=== PATIENT | female | born 1990 | race Caucasian/White ===

== ENCOUNTER 2016-10-19 15:49 | Inpatient (IN) ==
[2016-10-19 18:27] LABS: Basophils % 0.4 %; Eosinophils # 0.1 K/mcL (0.0-0.6); Eosinophils % 1.1 %; Hematocrit 38.5 % (35.3-44.9); Immature Granulocytes % 0.3 % (0-4); Lymphocytes # 2.8 K/mcL (0.6-4.6); Lymphocytes % 30.7 %; Mean Corpuscular HGB Conc 33.8 g/dL (31.6-35.5); Mean Corpuscular Hemoglobin 31.5 pg (28.0-33.3); Mean Corpuscular Volume 93.2 fL (83.0-100.0); Mean Platelet Volume 10.6 fL (9.4-12.4); Monocytes # 0.8 K/mcL (0.0-1.3); Monocytes % 9.2 %; Neutrophils # 5.2 K/mcL (1.6-8.9); Platelet Count 271 K/mcL (140-400); Red Blood Count 4.13 M/mcL (3.82-4.97); Red Cell Distribution Width 12.4 % (11.5-14.5); Segmented Neutrophils % 58.3 %
[2016-10-19 18:49] LABS: Alanine Aminotransferase 10 Units/L (0-55); Albumin/Globulin Ratio 1.1 (1.1-2.2); Alkaline Phosphatase 73 Units/L (38-126); Amylase 73 Units/L (25-125); Aspartate Amino Transferase 16 Units/L (5-34); BUN/Creatinine Ratio 18 (6-26); Bilirubin,Direct 0.2 mg/dL (0.0-0.5); Bilirubin,Indirect 0.3 mg/dL (0.0-1.2); Bilirubin,Total 0.5 mg/dL (0.2-1.2); Blood Urea Nitrogen 17 mg/dL (7-20); Calcium 9.6 mg/dL (8.6-10.8); Carbon Dioxide 24 mEq/L (19-29); Chloride 105 mEq/L (98-109); Globulin 3.5 g/dL (2.4-3.5); Glucose 135 mg/dL (70-99); Lipase 49 Units/L (8-78); Osmolality,Calculated 292 (280-300); Potassium 3.7 mEq/L (3.5-4.5); Sodium 139 mEq/L (136-145); Total Protein 7.5 g/dL (6.0-8.3); eGFR For African Americans > 60 (> 60); eGFR For Non-African Americans > 60 (> 60)
[2016-10-19] MEDS ORDERED: Ondansetron 4 MG/2 ML VIAL IVP ONE (20:52)
[2016-10-19] MEDS ORDERED: *HR* HYDROmorphone (PF) 1 MG/ML SYRINGE IVP ONE (20:52)
[2016-10-19] MEDS ORDERED: 0.9 % Sodium Chloride 1,000 ML IVC ONE (20:52)
--- NOTE | 2016-10-19 20:57 | Emergency Department Note ---
Disposition Clinical Impression: Pyelonephritis Intractable vomiting with nausea Qualifiers: Vomiting type: unspecified Qualified Code(s): R11.2 - Nausea with vomiting, unspecified Disposition: Admitted As Inpatient Referrals: Edwin Caldera DO [Primary Care Provider] - Forms: Work/School Release, ED Satisfaction Letter Time of Disposition: 22:19 Abdominal Pain HPI - General Chief Complaint: ED Abdominal Pain Stated Complaint: FLANK PAIN Time Seen by Provider: 10/19/16 17:06 Source: patient Mode of arrival: wheelchair Limitations: no limitations Nursing Notes Reviewed: Yes Vital Signs Reviewed: Yes - History of Present Illness HPI Narrative: History of present illness: 26-year-old female with ear worse down low syndrome presents with right flank pain for 1-2 weeks. Was treated outpatient on ciprofloxacin for presumed UTI. However despite a 7 day course of ciprofloxacin patient had persistent flank pain on the right hematuria and fevers up to 101. She has had interstitial cystitis since 2009. She also has a history of migraine headaches. Patient is currently on having her menses. Patient said that she really has not been able to keep anything down for the past 24-40 hours. Denies any photophobia or headache. Denies any chest pain or shortness of breath. Denies any skin rashes. Patient states that her last kidney stone was approximately one year ago. And it was taken care of by a neurologist at [facility]. Pain Scale: 7 - Related Data Home Medications Medication Instructions Recorded Confirmed Fludrocortisone Acetate [Florinef] 0.05 mg PO BID 03/15/16 03/16/16 Fluvoxamine [Luvox] 100 mg PO HS 03/15/16 03/16/16 Potassium Chloride [K-Tab ER] 10 meq PO DAILY 03/15/16 03/16/16 Quetiapine Fumarate [Seroquel] 200 mg PO HS 03/15/16 03/16/16 Diazepam [Valium] 5 mg PO DAILY PRN 03/16/16 03/16/16 Topiramate [Topamax] 150 mg PO HS 03/16/16 03/16/16 Previous Rx's Medication Instructions Recorded Levofloxacin [Levaquin] 500 mg PO DAILY #5 tablet 03/17/16 Oxycodone HCl/Acetaminophen 1 each PO Q4H PRN #20 tablet 03/17/16 [Percocet 5-325 mg Tablet] Diazepam [Valium] 5 mg PO BID PRN #10 tablet 03/20/16 Doxycycline 100 mg PO BID #14 capsule 03/27/16 Fluconazole [Diflucan] 150 mg PO DAILY #1 tab 03/27/16 Fluvoxamine [Luvox] 100 mg PO HS #30 tablet 03/27/16 Amoxicillin 875 mg PO BID #20 tablet 05/11/16 PredniSONE [Deltasone] 20 mg PO DAILY #11 tablet 05/11/16 Fluvoxamine [Luvox] 100 mg PO HS #30 tablet 05/18/16 HYDROcodone/Acet 5/325 mg [[place] 1 tab PO Q6HR PRN #10 tablet 07/03/16 5-325 mg] HYDROcodone/Acet 5/325 mg [[place] 1 tab PO Q6H PRN #4 tab 07/16/16 5-325 mg] Amoxicillin Susp [Amoxil] 11 ml PO BID #154 bottle 08/03/16 Allergies Allergy/AdvReac Type Severity Reaction Status Date / Time cefdinir [From Omnicef] Allergy Rash Verified 09/04/16 10:16 Nickel Allergy Rash Verified 09/04/16 10:16 red dye Allergy Rash Verified 09/04/16 10:16 sulfamethoxazole Allergy Rash Verified 09/04/16 10:16 [From Bactrim] trimethoprim [From Bactrim] Allergy Rash Verified 09/04/16 10:16 metronidazole [From Flagyl] AdvReac Nausea Verified 09/04/16 10:16 phenazopyridine AdvReac Nausea Verified 09/04/16 10:16 [From Pyridium] All systems ED: reviewed and negative except as stated. 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: non-contributory Psychiatric history: Reports: anxiety, depression, other - Social History Smoking status: Never smoker Alcohol use: Reports: occasionally Drug use: Reports: marijuana Physical Exam - General Limitations: no limitations General appearance: alert, in distress - Head Head exam: atraumatic, normocephalic - Eye Eye exam: Present: normal appearance, PERRL, EOMI - ENT ENT exam: normal exam, normal oropharynx, mucous membranes dry - Neck Neck exam: Present: normal inspection, full ROM - Chest Chest inspection: Present: normal inspection, symmetric chest wall rise - Respiratory Respiratory exam: Present: normal lung sounds bilaterally - Cardiovascular Cardiovascular exam: Present: regular rate, normal rhythm - Abdominal Exam Abdominal exam: Present: soft, Non-Tender - Extremities Exam Extremities exam: Present: normal inspection, full ROM - Expanded Lower Extremity Exam Neurovascular/Tendon exam: Present: normal capillary refill Gait: not tested/not observed - Back Exam Back exam: Present: normal inspection, full ROM, CVA tenderness (R). Absent: CVA tenderness (L) - Neurological Exam Neurological exam: Present: alert, oriented X3, CN II-XII intact - Psychiatric Psychiatric exam: Present: normal affect, normal mood - Skin Skin exam: Present: warm, dry, intact Course - Reevaluation(s) Reevaluation #1: Patient with history of kidney stones treatment for outpatient UTI but persistent pain and fevers. He worked up for possible pyelonephritis and rule out concomitant nephrolithiasis. Patient is getting IV fluid bolus, IV antibiotics, take care of her brother IV analgesics. Screening labs and abdominopelvic CT. Patient stable. Time: 20:59 Reevaluation #2: Patient's ED workup is complete. Abdominal pelvic CT is essentially negative aside from an intraparenchymal kidney stone on the left. Patient's CBC within normal limits chemistry panel shows a slightly low potassium. Patient's urinalysis suspicious for infection. Due to the patient's persistence of symptoms and intractable nausea and vomiting she will be admitted for suspected clinical pyelonephritis. I ordered a gram of IV Rocephin. Hospitalist was paged. Decision to admit placed. Patient stable Time: 22:18 Vital Signs Respiratory Rate 0 10/19/16 17:06 Blood Pressure 0/0 10/19/16 17:06 Temperature 98 F 10/19/16 17:18 Pulse Rate 95 10/19/16 17:18 Respiratory Rate 22 10/19/16 17:18 Blood Pressure 111/80 10/19/16 17:18 O2 Sat by Pulse Oximetry 100 10/19/16 22:15 Oxygen Delivery Oxygen Delivery Room Air Abdominal Pain - Lab Data Result diagrams: 10/19/16 18:15 10/19/16 18:15 Lab Results 10/19/16 10/19/16 10/19/16 Range/Units 18:15 18:15 20:45 WBC 9.0 (4.3-11.1) K/mcL RBC 4.13 (3.82-4.97) M/mcL Hgb 13.0 (11.5-15.4) g/dL Hct 38.5 (35.3-44.9) % MCV 93.2 (83.0-100.0) fL MCH 31.5 (28.0-33.3) pg MCHC 33.8 (31.6-35.5) g/dL RDW 12.4 (11.5-14.5) % Plt Count 271 (140-400) K/mcL MPV 10.6 (9.4-12.4) fL Immature Gran % 0.3 (0-4) % Seg Neutrophils % 58.3 % Lymphocytes % 30.7 % Monocytes % 9.2 % Eosinophils % 1.1 % Basophils % 0.4 % Neutrophils # 5.2 (1.6-8.9) K/mcL Lymphocytes # 2.8 (0.6-4.6) K/mcL Monocytes # 0.8 (0.0-1.3) K/mcL Eosinophils # 0.1 (0.0-0.6) K/mcL Basophils # 0.0 (0.0-0.2) K/mcL Sodium 139 (136-145) mEq/L Potassium 3.7 (3.5-4.5) mEq/L Chloride 105 (98-109) mEq/L Carbon Dioxide 24 (19-29) mEq/L BUN 17 (7-20) mg/dL Creatinine 0.97 (0.57-1.11) mg/dL Est GFR ( Amer) > 60 (> 60) Est GFR (Non-Af Amer) > 60 (> 60) BUN/Creatinine Ratio 18 (6-26) Glucose 135 H (70-99) mg/dL Calculated Osmolality 292 (280-300) Lactic Acid (0.5-2.2) mmol/L Calcium 9.6 (8.6-10.8) mg/dL Total Bilirubin 0.5 (0.2-1.2) mg/dL Direct Bilirubin 0.2 (0.0-0.5) mg/dL Indirect Bilirubin 0.3 (0.0-1.2) mg/dL AST 16 (5-34) Units/L ALT 10 (0-55) Units/L Alkaline Phosphatase 73 (38-126) Units/L Serum Total Protein 7.5 (6.0-8.3) g/dL Albumin 4.0 (3.5-5.0) g/dL Globulin 3.5 (2.4-3.5) g/dL Albumin/Globulin Ratio 1.1 (1.1-2.2) Amylase 73 (25-125) Units/L Lipase 49 (8-78) Units/L Ur Specimen Adequacy Urine Color Red A (Yellow) Urine Clarity Cloudy A (Clear) Urine pH 5.5 (5.0-8.0) pH Units Ur Specific [place] 1.018 (1.010-1.025) Urine Protein 100 H (Neg-Trace) mg/dL Urine Glucose (UA) Normal (Normal) mg/dL Urine Ketones 15 H (Negative) mg/dL Urine Blood Large H (Negative) Urine Nitrite Positive A (Negative) Urine Bilirubin Large H (Negative) Urine Urobilinogen Normal (Normal) mg/dL Ur Leukocyte Esterase Moderate H (Negative) Ur Culture Indicated? YES A (NO) Urine Test (Negative) 10/19/16 10/19/16 Range/Units 20:52 21:27 WBC (4.3-11.1) K/mcL RBC (3.82-4.97) M/mcL Hgb (11.5-15.4) g/dL Hct (35.3-44.9) % MCV (83.0-100.0) fL MCH (28.0-33.3) pg MCHC (31.6-35.5) g/dL RDW (11.5-14.5) % Plt Count (140-400) K/mcL MPV (9.4-12.4) fL Immature Gran % (0-4) % Seg Neutrophils % % Lymphocytes % % Monocytes % % Eosinophils % % Basophils % % Neutrophils # (1.6-8.9) K/mcL Lymphocytes # (0.6-4.6) K/mcL Monocytes # (0.0-1.3) K/mcL Eosinophils # (0.0-0.6) K/mcL Basophils # (0.0-0.2) K/mcL Sodium (136-145) mEq/L Potassium (3.5-4.5) mEq/L Chloride (98-109) mEq/L Carbon Dioxide (19-29) mEq/L BUN (7-20) mg/dL Creatinine (0.57-1.11) mg/dL Est GFR ( Amer) (> 60) Est GFR (Non-Af Amer) (> 60) BUN/Creatinine Ratio (6-26) Glucose (70-99) mg/dL Calculated Osmolality (280-300) Lactic Acid 0.8 (0.5-2.2) mmol/L Calcium (8.6-10.8) mg/dL Total Bilirubin (0.2-1.2) mg/dL Direct Bilirubin (0.0-0.5) mg/dL Indirect Bilirubin (0.0-1.2) mg/dL AST (5-34) Units/L ALT (0-55) Units/L Alkaline Phosphatase (38-126) Units/L Serum Total Protein (6.0-8.3) g/dL Albumin (3.5-5.0) g/dL Globulin (2.4-3.5) g/dL Albumin/Globulin Ratio (1.1-2.2) Amylase (25-125) Units/L Lipase (8-78) Units/L Ur Specimen Adequacy Urine Color (Yellow) Urine Clarity (Clear) Urine pH (5.0-8.0) pH Units Ur Specific [place] (1.010-1.025) Urine Protein (Neg-Trace) mg/dL Urine Glucose (UA) (Normal) mg/dL Urine Ketones (Negative) mg/dL Urine Blood (Negative) Urine Nitrite (Negative) Urine Bilirubin (Negative) Urine Urobilinogen (Normal) mg/dL Ur Leukocyte Esterase (Negative) Ur Culture Indicated? (NO) Urine Test Negative (Negative)
[2016-10-19 21:06] LABS: Bilirubin,Urine Large (Negative); Blood,Urine Large (Negative); Clarity,Urine Cloudy (Clear); Color,Urine Red (Yellow); Glucose,Urine (UA) Normal (Normal); Ketones,Urine 15 mg/dL (Negative); Leukocyte Esterase,Urine Moderate (Negative); Nitrite,Urine Positive (Negative); PH,Urine 5.5 pH Units (5.0-8.0); Protein,Urine 100 mg/dL (Neg-Trace); Specific Gravity,Urine 1.018 (1.010-1.025); Urobilinogen,Urine Normal (Normal)
[2016-10-19] MEDS ORDERED: 0.9 % Sodium Chloride 1,000 ML IVC SCH (22:30)
[2016-10-20] MEDS: *HR* Morphine 2 MG/ML SYRINGE IVP PRN ×3 (04:18→16:19)
[2016-10-20] MEDS ORDERED: Ondansetron 4 MG/2 ML VIAL IVP PRN (04:49)
[2016-10-20] MEDS ORDERED: Naloxone 0.4 MG/ML INJ IVP PRN (04:49)
[2016-10-20] MEDS ORDERED: Acetaminophen 325 MG TABLET PO PRN (04:49)
[2016-10-20] MEDS ORDERED: 0.9 % Sodium Chloride w KCl 20 MEQ/1,000 ML MLS IVC SCH (05:00)
[2016-10-20] MEDS: *HR* Heparin 5,000 UNIT/ML VIAL SQ SCH ×2 (05:29→18:36)
[2016-10-20] MEDS: Topiramate 100 MG TABLET PO SCH ×2 (05:30→21:33)
--- NOTE | 2016-10-20 06:23 | Internal Med History&Physical ---
Date of Encounter: 10/20/16 Time of Encounter: 06:15 Assessment and Plan (1) Pyelonephritis Current visit: Yes Status: Acute 1. Follow urine culture. 2. Continue IV antibiotics. 3. IVF hydration, IV pain control, IV anti-emetics. 4. Patient failed outpatient treatment. 5. Culture blood and monitor fevers. If fevers do not defervesce, consider reimaging the kidneys for possible cisco-nephric abscess. (2) Dehydration Current visit: Yes Status: Acute 1. IV fluid hydration. 2. Oral hydration as able. 3. Monitor I/O and daily weight; wean IVF as PO intake improves. (3) DVT prophylaxis Current visit: Yes Status: Acute 1. Heparin SQ. Internal Medicine - H&P: HPI Chief complaint: flank pain Admitted From: Emergency Dept Plans for Post Hospital Care: Home History of present illness: Ms. Humphreys is a 26 year old female who presents to the ER with flank pain, dysuria, hematuria, nausea, and vomiting and associated fevers. She was treated outpatient for UTI with failed results. She was on antibiotics for about 7-10 days as an outpatient and failed to improve despite the antibiotics. She therefore came to the ER where she was diagnosed with pyelonephritis. She was subsequently admitted to hospitalist service. Upon my assessment of the patient, she appears acutely ill but nontoxic. She is dehydrated, nauseated, and complaining of significant flank pain. She is in obvious distress and dehydration from her pyelonephritis. She has a history of recurrent UTI and cystitis, but she has never been admitted to the hospital for pyelonephritis. She did have kidney stones last summer requiring urologic intervention. She has had no problems with kidney stones since then. Patient also tells me that she has a history of Ehler-Danlos syndrome, POTS syndrome, and some anxiety. She takes Florinef for her POTS, Topamax for migraine prophylaxis, and Seroquel and Luvox for her anxiety. Unfortunately, her current medication list is not accurate and is not updated. She requested that I prescribe her medications as she takes every night. I did order as she takes them. The rest of her medication list is not accurate needs to be updated. Past Med Surg Social Fam HX - Past Medical History Attestation: Yes The following information was validated with the patient. Source: patient, old records reviewed Medical history: kidney stones, migraine, other (POTS) Psychiatric history: anxiety, depression - Past Surgical History Surgical History: other (tonsillectomy) - Social History Smoking Status: Never smoker Smokeless Tobacco Status: No Alcohol use: occasionally Drug use: none Current living situation: Home - Independent Activity Level: Independent ambulation Recent Out of Country Travel Within the Last 8 Weeks: No - Family History Father Living Status: Still Living Hx Family Cardiac Disorders: No Hx Family Respiratory Disorders: No Hx Family Cancer: No Hx Family GI Disorders: No Hx Family Genitourinary Disorders: No Hx Family Endocrine Disorder: No Hx Family Musculoskeletal Disorders: No Hx Family Neuromuscular Disorders: No Hx Family Neurologic Disorders: No Hx Family HEENT Disorders: No Hx Family Autoimmune Disorders: No Hx Family Reproductive Disorders: No Hx Family Psychosocial Disorders: No Hx Family Medical Disorders: No Mother Living Status: Still Living Hx Family Cardiac Disorders: Yes (HTN) Hx Family Respiratory Disorders: No Hx Family Cancer: Yes (Ovarian precancer) Hx Family GI Disorders: No Hx Family Genitourinary Disorders: Yes (Kidney stones) Hx Family Endocrine Disorder: Yes (Pre-diabetic) Hx Family Musculoskeletal Disorders: No Hx Family Neuromuscular Disorders: No Hx Family Neurologic Disorders: No Hx Family HEENT Disorders: Yes (Deaf in one ear) Hx Family Autoimmune Disorders: No Hx Family Reproductive Disorders: No Hx Family Psychosocial Disorders: No Hx Family Medical Disorders: No Internal Medicine - H&P: Meds Fludrocortisone Acetate [Florinef] 0.05 mg PO BID 03/15/16 [History] Fluvoxamine [Luvox] 100 mg PO HS 03/15/16 [History] Potassium Chloride [K-Tab ER] 10 meq PO DAILY 03/15/16 [History] Quetiapine Fumarate [Seroquel] 200 mg PO HS 03/15/16 [History] Diazepam [Valium] 5 mg PO DAILY PRN 03/16/16 [History] Topiramate [Topamax] 150 mg PO HS 03/16/16 [History] Levofloxacin [Levaquin] 500 mg PO DAILY #5 tablet 03/17/16 [Rx] Oxycodone HCl/Acetaminophen [Percocet 5-325 mg Tablet] 1 each PO Q4H PRN #20 tablet 03/17/16 [Rx] Diazepam [Valium] 5 mg PO BID PRN #10 tablet 03/20/16 [Rx] Doxycycline 100 mg PO BID #14 capsule 03/27/16 [Rx] Fluconazole [Diflucan] 150 mg PO DAILY #1 tab 03/27/16 [Rx] Fluvoxamine [Luvox] 100 mg PO HS #30 tablet 03/27/16 [Rx] Amoxicillin 875 mg PO BID #20 tablet 05/11/16 [Rx] PredniSONE [Deltasone] 20 mg PO DAILY #11 tablet 05/11/16 [Rx] Fluvoxamine [Luvox] 100 mg PO HS #30 tablet 05/18/16 [Rx] HYDROcodone/Acet 5/325 mg [[place] 5-325 mg] 1 tab PO Q6HR PRN #10 tablet [Rx] HYDROcodone/Acet 5/325 mg [[place] 5-325 mg] 1 tab PO Q6H PRN #4 tab 07/16/16 [Rx] Amoxicillin Susp [Amoxil] 11 ml PO BID #154 bottle 08/03/16 [Rx] Allergies cefdinir [From Omnicef] Allergy (Verified 09/04/16 10:16) Rash Nickel Allergy (Verified 09/04/16 10:16) Rash red dye Allergy (Verified 09/04/16 10:16) Rash sulfamethoxazole [From Bactrim] Allergy (Verified 09/04/16 10:16) Rash trimethoprim [From Bactrim] Allergy (Verified 09/04/16 10:16) Rash metronidazole [From Flagyl] Adverse Reaction (Verified 09/04/16 10:16) Nausea phenazopyridine [From Pyridium] Adverse Reaction (Verified 09/04/16 10:16) Nausea - Constitutional Constitutional: chills, fever(s), no night sweats - EENT Eyes: no blurry vision, no change in vision Ears: no ear pain, no tinnitus Nose, mouth and throat: no nasal congestion, no nasal discharge, no sinus pain, no sinus pressure, no sore throat - Cardiovascular Cardiovascular ROS IM: no chest pain, no diaphoresis, no dyspnea, no dyspnea on exertion, no palpitations, no syncope - Respiratory Respiratory: no cough, no dyspnea, no chest congestion, no excessive phlegm production - Gastrointestinal Gastrointestinal: nausea, vomiting, no abdominal pain, no diarrhea, no hematemesis, no hematochezia, no melena - Genitourinary Genitourinary: dysuria, flank pain, hematuria Additional comments: currently menstruating - Musculoskeletal Musculoskeletal ROS IM: back pain, no arthralgias, no muscle weakness, no myalgias - Integumentary Integumentary IM: no rash, no jaundice - Neurological Neurological ROS: no disequilibrium, no dizziness, no focal weakness, no frequent falls - Psychiatric Psychiatric: anxiety, depression - Endocrine Endocrine IM: no polydipsia, no polyuria - Hematologic/Lymphatic Hematologic/Lymphatic: easy bruising, no lymphadenopathy - Allergic/Immunologic Allergic/Immunologic: no wheezing, no GI upset with certain foods - Constitutional Vitals: Temp Pulse Resp BP Pulse Ox 97.9 F 91 16 109/77 98 10/20/16 02:45 10/20/16 02:45 10/20/16 02:45 10/20/16 02:45 10/20/16 02:45 General appearance: Present: cooperative, mild distress, A&O X 3, pleasant, answers questions appropriately Exam: acutely ill appearing but non-toxic - Head Head exam: Present: atraumatic, normal inspection - Expanded Head Exam Head exam expanded: Absent: general tenderness - Eye Eye exam: Present: EOMI, normal appearance, PERRL. Absent: scleral icterus Pupils: Present: normal accommodation - ENT ENT exam: Present: mucous membranes dry, normal exam, normal oropharynx - Neck Neck exam general surgery: Present: full ROM, supple, trachea midline. Absent: lymphadenopathy, tenderness - Respiratory Respiratory exam: Present: CTAB. Absent: chest wall tenderness, rales, respiratory distress, rhonchi, wheezes - Cardiovascular Cardiovascular exam: Present: RRR, +S1, +S2. Absent: diastolic murmur, JVD, systolic murmur - GI/Abdominal GI/Abdominal exam: Present: normal bowel sounds, tenderness (suprapubic radiating to both falnks, right > left), no peritoneal signs. Absent: guarding , hepatomegaly, rebound, splenomegaly - Extremities Exam Extremities exam: Present: full ROM, normal capillary refill, warm. Absent: calf tenderness, joint swelling - Back Exam Back exam: Present: CVA tenderness (L), CVA tenderness (R) (R>L), normal inspection - Neurological Exam Neurological exam: Present: alert, CN II-XII intact, oriented X3, no focal deficits, strengths equal and symetr throughout - Psychiatric Psychiatric exam: Present: normal affect, normal mood - Skin Skin exam: Present: dry, warm. Absent: rash Internal Med - H&P Results - Labs CBC & Chem 7: 10/19/16 18:15 10/19/16 18:15 - Diagnostic Studies CT scan - abdomen Additional comments: Report reviewed: negative; tiny/punctate non-obstructive kidney stone
[2016-10-20 06:48] LABS: Basophils % 0.8 %; Eosinophils # 0.1 K/mcL (0.0-0.6); Eosinophils % 1.5 %; Hematocrit 32.2 % (35.3-44.9); Immature Granulocytes % 0.4 % (0-4); Lymphocytes # 2.2 K/mcL (0.6-4.6); Lymphocytes % 41.6 %; Mean Corpuscular HGB Conc 33.2 g/dL (31.6-35.5); Mean Corpuscular Hemoglobin 30.4 pg (28.0-33.3); Mean Corpuscular Volume 91.5 fL (83.0-100.0); Mean Platelet Volume 10.7 fL (9.4-12.4); Monocytes # 0.6 K/mcL (0.0-1.3); Neutrophils # 2.3 K/mcL (1.6-8.9); Platelet Count 211 K/mcL (140-400); Red Blood Count 3.52 M/mcL (3.82-4.97); Red Cell Distribution Width 12.2 % (11.5-14.5); Segmented Neutrophils % 43.7 %
[2016-10-20 06:50] LABS: Hemoglobin 10.7 g/dL (11.5-15.4)
[2016-10-20 06:58] LABS: BUN/Creatinine Ratio 16 (6-26); Blood Urea Nitrogen 11 mg/dL (7-20); Carbon Dioxide 19 mEq/L (19-29); Chloride 111 mEq/L (98-109); Glucose 105 mg/dL (70-99); Osmolality,Calculated 290 (280-300); Potassium 3.4 mEq/L (3.5-4.5); Sodium 140 mEq/L (136-145); eGFR For African Americans > 60 (> 60); eGFR For Non-African Americans > 60 (> 60)
[2016-10-20] MEDS: *HR* HYDROcodone/Acet 5/325 mg TABLET PO PRN ×2 (12:38→18:39)
[2016-10-20] MEDS: 0.9 % Sodium Chloride w KCl 20 MEQ/1,000 ML MLS IVC SCH ×2 (14:09→23:55)
--- NOTE | 2016-10-20 15:49 | Electrocardiograph Report ---
[place] [id number] Test Date: 2016-10-20 Pat Name: Margie Humphreys Department: 113 Room: 3B Gender: F [employer]: : 1990 Requested By: Williams Luke Order Number: [id number] Reading MD: Savannah Cooper Measurements Intervals [place] Rate: 81 P: 50 LA: 146 QRS: 61 QRSD: 87 T: 24 QT: 357 QTc: 394 Interpretive Statements SINUS RHYTHM Electronically Signed On 10-20-2016 15:47:58 EDT by Savannah Cooper
[2016-10-21] MEDS: *HR* Morphine 2 MG/ML SYRINGE IVP PRN (00:22)
[2016-10-21] MEDS: *HR* Heparin 5,000 UNIT/ML VIAL SQ SCH ×2 (06:06→18:15)
[2016-10-21 06:25] LABS: Basophils # 0.1 K/mcL (0.0-0.2); Basophils % 0.9 %; Eosinophils # 0.1 K/mcL (0.0-0.6); Eosinophils % 1.9 %; Hematocrit 38.7 % (35.3-44.9); Immature Granulocytes % 0.3 % (0-4); Lymphocytes # 3.1 K/mcL (0.6-4.6); Lymphocytes % 53.8 %; Mean Corpuscular HGB Conc 32.8 g/dL (31.6-35.5); Mean Corpuscular Hemoglobin 31.2 pg (28.0-33.3); Mean Corpuscular Volume 95.1 fL (83.0-100.0); Mean Platelet Volume 10.7 fL (9.4-12.4); Monocytes # 0.5 K/mcL (0.0-1.3); Monocytes % 8.6 %; Platelet Count 246 K/mcL (140-400); Red Blood Count 4.07 M/mcL (3.82-4.97); Red Cell Distribution Width 12.3 % (11.5-14.5); Segmented Neutrophils % 34.5 %
[2016-10-21 06:37] LABS: Hemoglobin 12.7 g/dL (11.5-15.4)
[2016-10-21 06:47] LABS: BUN/Creatinine Ratio 8 (6-26); Blood Urea Nitrogen 6 mg/dL (7-20); Calcium 8.9 mg/dL (8.6-10.8); Carbon Dioxide 23 mEq/L (19-29); Chloride 111 mEq/L (98-109); Glucose 87 mg/dL (70-99); Magnesium 1.7 mg/dL (1.6-2.6); Osmolality,Calculated 289 (280-300); Potassium 3.9 mEq/L (3.5-4.5); Sodium 141 mEq/L (136-145); eGFR For African Americans > 60 (> 60); eGFR For Non-African Americans > 60 (> 60)
[2016-10-21] MEDS ORDERED: *HR* Morphine 2 MG/ML SYRINGE IVP PRN (08:33)
[2016-10-21] MEDS: *HR* HYDROcodone/Acet 5/325 mg TABLET PO PRN ×3 (08:54→23:20)
--- NOTE | 2016-10-21 14:39 | Discharge Summary ---
Date of Encounter: 10/21/16 Time of Encounter: 09:00 - Discharge Diagnosis (1) Pyelonephritis Priority: Primary Status: Acute (2) Dehydration Priority: Primary Status: Acute - Discharge Medications Prescriptions: HYDROcodone/Acet 5/325 mg [[place] 5-325 mg] 1 tab PO Q6HR PRN #5 tablet PRN Reason: Moderate Pain Ondansetron ODT [Zofran ODT] 4 mg SL Q8HR #10 tab.rapdis Levofloxacin [Levaquin] 500 mg PO DAILY #4 tablet Home Medications: Fludrocortisone Acetate [Florinef] 0.05 mg PO BID 03/15/16 [History] Quetiapine Fumarate [Seroquel] 200 mg PO HS 03/15/16 [History] Topiramate [Topamax] 150 mg PO HS 03/16/16 [History] Fluvoxamine [Luvox] 100 mg PO HS #30 tablet 05/18/16 [Rx] Fluvoxamine [Luvox] 100 mg PO HS tablet 10/21/16 [Rx] HYDROcodone/Acet 5/325 mg [[place] 5-325 mg] 1 tab PO Q6HR PRN #5 tablet 10/21/16 [Rx] Levofloxacin [Levaquin] 500 mg PO DAILY #4 tablet 10/21/16 [Rx] Ondansetron ODT [Zofran ODT] 4 mg SL Q8HR #10 tab.rapdis 10/21/16 [Rx] Allergies/Adverse Reactions: Allergies cefdinir [From Omnicef] Allergy (Verified 09/04/16 10:16) Rash Nickel Allergy (Verified 09/04/16 10:16) Rash red dye Allergy (Verified 09/04/16 10:16) Rash sulfamethoxazole [From Bactrim] Allergy (Verified 09/04/16 10:16) Rash trimethoprim [From Bactrim] Allergy (Verified 09/04/16 10:16) Rash metronidazole [From Flagyl] Adverse Reaction (Verified 09/04/16 10:16) Nausea phenazopyridine [From Pyridium] Adverse Reaction (Verified 09/04/16 10:16) Nausea Date of admission: 10/20/16 05:12 Primary care physician: Edwin Caldera, DO - Patient Status Disposition: Home, Self-Care Condition: Good Functional capacity at discharge: independent ambulation Overall status at discharge: patient is progressing back to baseline - Discharge Instructions Follow Up With: Edwin Caldera DO [Primary Care Provider] - (F/U IN 1 WEEK) Additional Instructions: drink plenty of fluids. follow up with your doctor in 1 week. - Diet and Activity Activity: resume usual activities as tolerated Diet: regular diet (DRINK PLENTY OF FLUIDS, AT LEAST 2 LITERS PER DAY) Interval History: Patient reports right flank pain is well-controlled with medications. She has been eating well. No nausea no vomiting. Hospital course: Ms. Humphreys is a 26 year old female with past medical history for kidney stones and migraines who presented with a chief complaint of right foot pain, dysuria, hematuria, nausea, vomiting and associated fevers. Patient failed outpatient antibiotic therapy for UTI (ciprofloxacin). She was admitted with diagnosis of acute pyelonephritis and received IV fluids and IV ceftriaxone with clinical improvement of her symptoms. CT abdomen and pelvis revealed a 8 mm non- obstructive calculous within the left kidney lower pole, no evidence of ureteral calculous or hydronephrosis. should improve clinically and she could be discharged with 1 more day of IM ceftriaxone otherwise she will remain in the hospital for her IV dose of ceftriaxone and then go home with 4 more days of oral Levaquin. PLAN: LEvaquin at home for a total course of 7 days of antibiotics. - Time Spent with Patient Total time spent providing and/or coordinating discharge services: - Constitutional Vitals: Temp Pulse Resp BP Pulse Ox 97.9 F 89 16 96/60 97 10/21/16 10:45 10/21/16 10:45 10/21/16 10:45 10/21/16 10:45 10/21/16 10:45 General appearance: Present: cooperative, mild distress, A&O X 3, pleasant, answers questions appropriately - Eye Eye exam: Present: PERRL, sclera anicteric - Neck Neck exam general surgery: Present: lymphadenopathy. Absent: supple, trachea midline - Respiratory Respiratory exam: Present: CTAB - Cardiovascular Cardiovascular exam: Present: RRR - GI/Abdominal GI/Abdominal exam: Present: normal bowel sounds, soft. Absent: distended, tenderness - Extremities Exam Extremities exam: Absent: cyanotic, pedal edema, tenderness - Back Exam Back exam: Present: CVA tenderness (R) (mild). Absent: CVA tenderness (L) - Neurological Exam Neurological exam: Present: alert, oriented X3, no focal deficits, strengths equal and symetr throughout. Absent: facial droop, speech deficit - Skin Skin exam: Absent: rash
[2016-10-21] MEDS: Topiramate 100 MG TABLET PO SCH (23:19)
[2016-10-22] MEDS: *HR* Heparin 5,000 UNIT/ML VIAL SQ SCH (06:02)
[2016-10-22 07:11] VITALS: BP 96/60
[2016-10-22] MEDS: *HR* HYDROcodone/Acet 5/325 mg TABLET PO PRN (08:22)
== END 2016-10-22 11:15 | disposition home or self-care (01) | DRG 463 ==
LOC: EMEROO 15:49 → 3BNU 15:49 → SUATTDRO 10-20 05:12
PROVIDERS: ADMIT Pediatrics; ATTEND Internal Medicine